=== PATIENT | female | born 1980 | race Caucasian/White ===

== ENCOUNTER 2017-06-28 17:45 | Emergency (ER) | payer OTHER ==
[2017-06-28 18:04] LABS: URINE HCG POC HCG NEGATIVE (Negative)
[2017-06-28] MEDS ORDERED: ONDANSETRON PF 4 MG/2 ML VIAL. (18:50)
[2017-06-28] MEDS: IV NORMAL SALINE 1000ML BAG 1,000 ML IV (18:53)
[2017-06-28] MEDS: ONDANSETRON PF 4 MG/2 ML VIAL. IV (18:56)
[2017-06-28] MEDS ORDERED: ONDANSETRON ODT 4 MG TAB.RAPDIS. PO (19:00)
[2017-06-28 19:08] LABS: ANION GAP 12 (6-14); BLOOD UREA NITROGEN 19 mg/dL (7-20); CALCIUM 8.5 mg/dL (8.5-10.1); CARBON DIOXIDE 26 mmol/L (21-32); CHLORIDE 104 mmol/L (98-107); CREATININE 0.9 mg/dL (0.6-1.0); GFR 70.1; GLUCOSE 103 mg/dL (70-99); POTASSIUM 3.5 mmol/L (3.5-5.1); SODIUM 142 mmol/L (136-145)
[2017-06-28] MEDS: METOCLOPRAMIDE HCL 10 MG/2 ML VIAL. IV (19:44)
== END 2017-06-28 20:33 | disposition home or self-care (01) ==
LOC: ER 17:45
DX: K52.9 Noninfective gastroenteritis and colitis, unspecified (principal); E86.0 Dehydration; B34.9 Viral infection, unspecified; Z91.041 Radiographic dye allergy status
CPT/HCPCS: 36415; 80048; 81025; 96361; 96374; 96375; 99284-25; J2405; J2765; J7030